=== PATIENT | male | born 1995 | race African-American/Black ===

== ENCOUNTER 2018-01-13 19:53 | Emergency (ER) | payer SELFPAY ==
[2018-01-13] MEDS ORDERED: 0.9 % SODIUM CHLORIDE 1000ML 1,000 ML IV SCH (21:00)
--- NOTE | 2018-01-13 21:00 | Emergency Department Record ---
History of Present Illness - General Chief Complaint: Passed out Stated Complaint: PASSOUT AT WORK Time Seen by Provider: 01/13/18 20:42 Source: Patient Mode of Arrival: Ambulatory Limitations: No limitations - History of Present Illness Initial Comments: 22 yo male presents to ED for evaluation of near syncope and collapse x 2 toeday while at work. Patient works at a [employer] center, denies that he was working outdoors in heat. Patient reports that he "didn't feel well all day", states he could feel his symptoms coming on before collapsing. Patient denies history of symptoms previously, denies health problems at his baseline. Complaint: Collapsed Onset/Timin -: Hour(s) Prodromal Symptoms: Lightheaded -: Second(s) Witnessed: Yes - by bystander Injuries Sustained Associated with Event: None Current Symptoms: None Treatments Prior to Arrival: None - Melanie Coma Scale Eye Response: (4) Open spontaneously Motor Response: (6) Obeys commands Verbal Response: (5) Oriented [place] Total: 15 - Related Data Allergies Allergy/AdvReac Type Severity Reaction Status Date / Time No Known Drug Allergies Allergy Verified 01/13/18 20:41 Travel Screening - Travel/Exposure Within Last 30 Days Have you traveled within the last 30 days?: No - Travel/Exposure Within Last Year Have you traveled outside the [place] in the last year?: No - Additonal Travel Details Have you been exposed to anyone with a communicable illness?: No - Travel Symptoms Symptom Screening: None Review of Systems Constitutional: Denies: Chills, Fever, Malaise, Night sweats Eyes: Denies: Eye discharge, Eye pain ENT: Denies: Congestion, Ear pain, Epistaxis Respiratory: Denies: Cough, Dyspnea Cardiovascular: Reports: Other (Near syncope). Denies: Chest pain, Dyspnea on exertion Endocrine: Denies: Fatigue, Heat or cold intolerance Gastrointestinal: Denies: Abdominal pain, Nausea, Vomiting Genitourinary: Denies: Incontinence, Retention Musculoskeletal: Denies: Arthralgia, Back pain, Gout, Joint swelling Skin: Denies: Bruising, Change in color, Change in hair/nails Neurological: Denies: Abnormal gait, Confusion, Headache, Seizure Psychiatric: Denies: Anxiety Hematological/Lymphatic: Denies: Anemia, Blood Clots Past Medical History - SOCIAL HISTORY Smoking Status: Never smoker Alcohol Use: None Drug Use: None - RESPIRATORY Hx Respiratory Disorders: No - CARDIOVASCULAR Hx Cardio Disorders: No - NEURO Hx Neuro Disorders: No - GI Hx GI Disorders: No - Hx Genitourinary Disorders: No - ENDOCRINE Hx Endocrine Disorders: No - MUSCULOSKELETAL Hx Musculoskeletal Disorders: No - PSYCH Hx Psych Problems: No - HEMATOLOGY/ONCOLOGY Hx Hematology/Oncology Disorders: No Family Medical History Any Significant Family History?: No Physical Exam - General General Appearance: Alert, Oriented x3, Cooperative, No acute distress Limitations: No limitations - Head Head exam: Atraumatic, Normocephalic, Normal inspection Head exam detail: negative: Abrasion, Contusion, Miramontes's sign, General tenderness, Hematoma, Laceration - Eye Eye exam: Normal appearance. negative: Conjunctival injection, Periorbital swelling, Periorbital tenderness, Scleral icterus - ENT Ear exam: negative: Auricular hematoma, Auricular trauma Nasal Exam: negative: Active bleeding, Discharge, Dried blood, Foreign body Mouth exam: negative: Drooling, Laceration, Muffled voice, Tongue elevation - Neck Neck exam: Normal inspection. negative: Meningismus, Tenderness - Respiratory Respiratory exam: Normal lung sounds bilaterally. negative: Rales, Respiratory distress, Rhonchi, Stridor - Cardiovascular Cardiovascular Exam: Regular rate, Normal rhythm, Normal heart sounds - GI/Abdominal GI/Abdominal exam: Soft. negative: Rebound, Rigid, Tenderness - Rectal Rectal exam: Deferred - exam: Deferred - Extremities Extremities exam: Normal inspection. negative: Calf tenderness, Pedal edema, Tenderness - Back Back exam: Denies: CVA tenderness (R), CVA tenderness (L) - Neurological Neurological exam: Alert, Normal gait, Oriented X3 - Psychiatric Psychiatric exam: Normal affect, Normal mood - Skin Skin exam: Normal color. negative: Abrasion Type of lesion: negative: abrasion Course Vital Signs 01/13/18 20:36 Temperature 98.4 F Pulse Rate 69 Respiratory 20 Rate Blood Pressure 139/69 Pulse Ox 99 - Reevaluation(s) Reevaluation #1: 01/13/18 20:55 EKG NSR 72 Normal [place], Normal intervals including QT interval No evidence for WPW (no presence delta wave) There are no findings to suggest Brugada syndrome. There are no findings to suggest Hypertrophic Cardiomyopathy (deep Q waves) Reevaluation #2: 01/13/18 21:39 Labs reviewed and are grossly unremarkable for an acute process. Reevaluation #3: 01/13/18 21:46 Laboratory results reviewed and are grossly unremarkable for an acute process. Patient was updated on all results thus far, reports that he is feeling at his baseline. Will reassess when IVFs have completed infusing. Medical Decision Making - Lab Data Result diagrams: 01/13/18 21:07 01/13/18 21:07 Disposition Disposition: Discharge Clinical Impression: Near syncope Disposition: Home, Self-Care Condition: (2) Stable Instructions: Near Syncope (ED) Additional Instructions: Return to ED if your symptoms worsen or if you have any concerns. Drink plenty of fluids/rest. Follow-up with your family doctor in 3-5 days as directed. Forms: Patient Portal Access, Return to Work/School Time of Disposition: 21:48 Quality - Quality Measures Quality Measures: N/A - Blood Pressure Screening Does Patient Have Any of the Following: No Blood Pressure Classification: Pre-Hypertensive BP Reading Systolic Measurement: 139 Diastolic Measurement: 69 Screening for High Blood Pressure: < Pre-Hypertensive BP, F/U Documented > [ [id number]] Pre-Hypertensive Follow-up Interventions: Referral to alternative/primary care provider.
[2018-01-13 21:15] LABS: BASO % 0.5 % (0-6); GRAN % 41.2 % (47-80); HEMATOCRIT 41.3 % (42.0-52.0); HEMOGLOBIN 13.7 gm/dl (14.0-18.0); LYMPH % 45.9 % (16-45); MEAN CELL VOLUME 84.8 fl (81-97); MEAN CORPUSCULAR HEMOGLOBIN 28.1 pg (27-33); MEAN CORPUSCULAR HGB CONC 33.2 g/dl (32-36); MEAN PLATELET VOLUME 10.1 fl (7.4-10.4); MONO % 9.4 % (0-9); PLATELET COUNT 229 K/uL (130-400); RED BLOOD COUNT 4.87 M/uL (4.40-5.70); RED CELL DISTRIBUTION WIDTH 13.6 % (11.5-14.5)
[2018-01-13 21:31] LABS: BLOOD UREA NITROGEN 11 mg/dL (6-20); CREATININE 1.1 mg/dL (0.7-1.2); EST GLOMERULAR FILTRATION RATE > 60 mL/min
[2018-01-13 21:32] LABS: TOTAL PROTEIN 7.5 g/dL (6.6-8.7)
[2018-01-13 21:34] LABS: GLUCOSE,RANDOM 90 mg/dL (74-109)
[2018-01-13 21:37] LABS: ALB/GLOB RATIO 1.5 (1.1-1.8); ALBUMIN 4.5 g/dL (4.0-5.0); ALKALINE PHOSPHATASE 57 U/L (40-129); ALT/SGPT 38 U/L (<41); AST/SGOT 39 U/L (10.0-50.0)
== END 2018-01-13 22:09 | disposition home or self-care (01) ==
LOC: ER 19:53
DX: R55 Syncope and collapse (principal)
CPT/HCPCS: 80053; 85025; 93005; 93010; 96360; 99284; J7030